=== PATIENT | male | born 1970 | race American Indian/Alaskan Native ===

== ENCOUNTER 2017-03-14 14:13 | Emergency (ER) | payer OTHER ==
[~2017-03-14] VITALS: Ht 167.6 cm; Wt 108.9 kg
[2017-03-14 15:36] VITALS: BP 124/77
== END 2017-03-14 16:22 | disposition home or self-care (01) ==
LOC: ER 15:00
DX: S09.90XA Unspecified injury of head, initial encounter (principal); W18.39XA Other fall on same level, initial encounter; Y99.0 Civilian activity done for income or pay; Y93.89 Activity, other specified; Y92.69 Other specified industrial and construction area as the place of occurrence of the external cause
CPT/HCPCS: 70450

== ENCOUNTER 2025-07-08 11:25 | Inpatient (IN) | payer OTHER ==
[~2025-07-08] VITALS: Ht 167.6 cm; Wt 127.5 kg
[2025-07-08 11:48] VITALS: PULSE 52; RESP 17; O2SAT 96
--- NOTE | 2025-07-08 12:01 | ECG ---
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
[2025-07-08] MEDS: SODIUM CHLORIDE 0.9% 2,000 ML IV ONE (12:06)
[2025-07-08] MEDS: ONDANSETRON HCL 4 MG/2 ML VIAL IV ONE (12:10)
--- NOTE | 2025-07-08 12:11 | ED.PDOC ---
SOB-HPI HPI Comments 54y M with a history of restless leg syndrome presents to the ED via EMS for chief complaint of inhalation of an unknown substance, associated with dizziness, nausea and vomiting. 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 Pt told staff about his symptoms and was administered Narcan. Pt states after Narcan administration he developed nausea, vomiting and felt more dizzy, so was brought to the ED for evaluation. Pt in the ED, with Long Term staff officer stating guards at residential are often exposed to fumes from many things including bug spray to synthetic drugs often being smoked by inmates. Pt in the ED, has noted heart rate of 46 and BP of 171/95 but otherwise stable vitals including 02 sat of 100% on room air, rr 18 and temp of 97.8 F. Pt otherwise denies any chest pain, difficulty breathing, abdominal pain, vision changes, focal weakness or other symptoms at this time. Pt in the ED, alert and oriented x 4 and able to answer all questions. Chief Complaint: Inhalation Time Seen by MD: 12:08 Primary Care Provider: NONE Reviewed notes: Medications, Allergies Information Source: Patient, Emergency Med Personnel Mode of Arrival: EMS Past Medical History Past Medical History (Other): restless legs syndrome Surgical History: Denies all surgeries Family History Family History: Unknown Social History Smoker: Non-Smoker Alcohol: Denies ETOH Use Drugs: Denies Drug Use Lives In: Home All Other Systems: Reviewed and Negative (see HPI) Physical Exam General Appearance: Mild Distress, Obese HEENT: Other (Pupils and face symmetric. Moist mucous membranes.) Neck: Full Range of Motion, Normal Inspection Respiratory: Lungs Clear, No Accessory Muscle Use, No Respiratory Distress, Normal Breath Sounds Cardiovascular: Bradycardia, No Edema, No JVD Breast Exam: Deferred Gastrointestinal: Non Tender, Soft Genitalia: Deferred Pelvic: Deferred Rectal: Deferred Extremities: Normal inspection, Normal range of motion, Non-tender, No pedal edema Neurologic: Alert (Oriented x4), Normal Affect, Normal Mood, Other (No gross focal deficit) Cerebellar Function: NOT DONE Reflexes: NOT DONE Skin: Dry, Normal Color, Warm Lymphatic: NOT DONE EKG EKG : Comments Sinus bradycardia, rate 48, normal intervals, normal axis, normal QRS, nonspecific T change. Was a procedure done? Was a procedure done?: No Differential Dx Differential Diagnosis: Anxiety, Panic Attack Comments toxic encephalopathy, electrolyte imbalance, dehydration, drug intoxication, opiate withdrawal due to Narcan, among others X-Ray, Labs, Meds, VS Vital Signs Date Time Temp Pulse Resp B/P (MAP) Pulse Ox O2 Delivery O2 Flow Rate FiO2 07/08/25 14:01 44 12 128/72 (90) 97 07/08/25 12:00 53 07/08/25 11:48 52 17 96 Room Air* 0 21 07/08/25 11:47 96.9 52 17 161/85 (110) 96 96.9 07/08/25 11:38 97.8 46 18 171/95 100 97.8 07/08/25 11:34 48 Lab Test 07/08/25 13:50 07/08/25 13:17 07/08/25 11:33 Range/Units Urine Color Light-yellow Yellow Urine Clarity Clear Clear Urine pH 5.5 5.0-9.0 Urine Specific [place] 1.022 1.001-1.035 Urine Protein Negative Negative Urine Ketones Negative Negative Urine Blood Negative Negative /uL Urine Nitrite Negative Negative Urine Bilirubin Negative Negative Urine Urobilinogen Normal Negative mg/dL Urine Leukocyte Esterase Negative Negative /uL Urine RBC 2 0 - 3 /hpf Urine Microscopic WBC 1 0-3 /HPF Urine Squamous Epithelial Cells None seen <5 /hpf Urine Bacteria None seen None Seen /hpf Urine Mucus Few None Seen Urine Glucose Normal Normal mg/dL Urine Opiates Screen Neg NEGATIVE Urine Fentanyl Screen Neg NEGATIVE Urine Barbiturates Screen Neg NEGATIVE Urine Phencyclidine Screen Neg NEGATIVE Urine Amphetamines Screen Neg NEGATIVE Urine Benzodiazepines Screen Neg NEGATIVE Urine Cocaine Screen Neg NEGATIVE Urine Cannabinoids Screen Neg NEGATIVE White Blood Count 10.4 4.4-10.8 10^3/uL Red Blood Count 4.62 4.5-5.90 10^6/uL Hemoglobin 14.5 13.5-17.5 g/dL Hematocrit 41.5 41.0-53.0 % Mean Corpuscular Volume 89.9 80.0-100.0 fL Mean Corpuscular Hemoglobin 31.4 28.0-32.0 pg Mean Corpuscular Hemoglobin Concent 35.0 32.0-36.0 g/dL Red Cell Distribution Width 12.9 11.8-14.3 % Platelet Count 196 140-450 10^3/uL Mean Platelet Volume 9.3 6.9-10.8 fL Neutrophils (%) (Auto) 83.2 H 37.0-80.0 % Lymphocytes (%) (Auto) 11.8 10.0-50.0 % Monocytes (%) (Auto) 3.6 0.0-12.0 % Eosinophils (%) (Auto) 1.0 0.0-7.0 % Basophils (%) (Auto) 0.4 0.0-2.0 % Neutrophils # (Auto) 8.6 1.6-8.6 10 ^3/uL Lymphocytes # (Auto) 1.2 0.4-5.4 10 ^3/uL Monocytes # (Auto) 0.4 0-1.3 10 ^3/uL Eosinophils # (Auto) 0.1 0-0.8 10 ^3/uL Basophils # (Auto) 0 0-0.2 10 ^3/uL Nucleated Red Blood Cells 0.0 % Sodium Level 142 136-145 mmol/L Potassium Level 3.8 3.5-5.1 mmol/L Chloride Level 108 H 98-107 mmol/L Carbon Dioxide Level 22 20-31 mmol/L Anion Gap 12 5-15 Blood Urea Nitrogen 11 9-23 mg/dL Creatinine 0.92 0.700-1.30 mg/dL Glomerular Filtration Rate Calc 99 >90 mL/min BUN/Creatinine Ratio 12.0 10.0-20.0 Serum Glucose 132 H 74-106 mg/dL Calcium Level 8.7 8.7-10.4 mg/dL Total Bilirubin 0.6 0.2-1.0 mg/dL Aspartate Amino Transferase (AST) 18 13-40 U/L Alanine Aminotransferase (ALT) 26 7-40 U/L Alkaline Phosphatase 82 46-116 U/L Total Protein 6.9 5.7-8.2 g/dL Albumin 4.2 3.2-4.8 g/dL POC Glucose 126 H 70-106 mg/dl Current Medications Medications (Trade) Dose Ordered Sig/[place] Route Start Time Stop Time Status Last Admin Sodium Chloride 2,000 ml @ 1,000 mls/hr Q2H ONCE IV 07/08/25 12:00 07/08/25 13:59 DC 07/08/25 12:06 Ondansetron HCl (Zofran) 4 mg ONCE ONCE IV 07/08/25 12:00 07/08/25 12:02 DC 07/08/25 12:10 Meclizine HCl (Antivert Tablet) 50 mg ONCE ONCE PO 07/08/25 12:00 07/08/25 12:02 DC 07/08/25 12:22 Metoclopramide HCl (Reglan Injection) 10 mg ONCE ONCE IV 07/08/25 13:15 07/08/25 13:16 DC 07/08/25 14:20 Lorazepam (Ativan Inj) 0.5 mg ONCE ONCE IV 07/08/25 13:15 07/08/25 13:16 DC 07/08/25 14:20 X-Ray, Labs, Meds, VS Comment 54-year-old male with a history of restless leg syndrome brought in by work supervisors for evaluation of dizziness, nausea and vomiting after her exposure to an inhaled unknown substance followed by Narcan administration Vitals remarkable for heart rate 48, BP 171/95 Exam remarkable for mild distress Rhythm strip independently interpreted by me: Sinus bradycardia, rate 48, no ectopy. CBC, CMP, UA, urine drug screen unremarkable for any abnormality of acute significance Patient treated with the following in the ED: 2 L 0.9 normal saline IV bolus, Zofran 4 mg IV, meclizine 50 mg p.o. On re-evaluation, patient states he still feels nauseated and dizzy. He subsequently received Ativan 0.5 mg IV and Reglan 10 mg IV On re-evaluation after 2nd round of medications, patient states his symptoms have not improved. He states he still feels dizzy although the nausea has subsided. He states he feels agitated, so an additional 0.5 mg Ativan IV was ordered. Heart rate is in the 50s, other vitals were stable. Since patient's symptoms have not improved after IV fluid hydration and additional medications, plan is to admit the patient for ongoing observation and symptomatic treatment. Time of 1ST Reevaluation: 13:23 Reevaluation 1ST: Unchanged Patient Education/Counseling: Diagnosis, Treatment, Prognosis Family Education/Counseling: Diagnosis, Treatment, Prognosis SEPSIS Sepsis Screen Date sepsis recognized/suspect: Jul 08, 2025 Time Sepsis recognized/suspect: 8 Recent Procedure: No On Antibiotic Therapy: No Respiratory Rate >20: No Heart Rate >90: No Temp<36 C (96.8 F) or >38.3 C: No SBP <90 or MAP <65 mmHG: No New Acute Mental Status Change: No Is the patient on CPAP, BIPAP,: No Physician Orders Lorazepam 2mg/Ml Inj (Ativan Inj) (07/08/25 15:15) Vital Signs Date Time Temp Pulse Resp B/P (MAP) Pulse Ox O2 Delivery O2 Flow Rate FiO2 07/08/25 14:01 44 12 128/72 (90) 97 07/08/25 12:00 53 07/08/25 11:48 52 17 96 Room Air* 0 21 07/08/25 11:47 96.9 52 17 161/85 (110) 96 96.9 07/08/25 11:38 97.8 46 18 171/95 100 97.8 07/08/25 11:34 48 Laboratory Tests Test 07/08/25 13:17 White Blood Count 10.4 10^3/uL (4.4-10.8) Medications Medications Dose Ordered Sig/[place] Route Start Time Stop Time Status Last Admin Dose Admin Lorazepam 0.5 mg ONCE ONCE IV 07/08/25 13:15 07/08/25 13:16 DC 07/08/25 14:20 Meclizine HCl 50 mg ONCE ONCE PO 07/08/25 12:00 07/08/25 12:02 DC 07/08/25 12:22 Metoclopramide HCl 10 mg ONCE ONCE IV 07/08/25 13:15 07/08/25 13:16 DC 07/08/25 14:20 Ondansetron HCl 4 mg ONCE ONCE IV 07/08/25 12:00 07/08/25 12:02 DC 07/08/25 12:10 Sodium Chloride 2,000 ml @ 1,000 mls/hr Q2H ONCE IV 07/08/25 12:00 07/08/25 13:59 DC 07/08/25 12:06 Departure 1 Departure Time of Disposition: 14:30 Impression: Primary Impression: Toxic encephalopathy Qualified Codes: G92.9 - Unspecified toxic encephalopathy Disposition: ADMITTED INPATIENT Admit to: Med Surg Condition: Guarded Critical Care Note Critical Care Time?: No Stability Stability form required: No Heart Score Heart Score: Heart Score Response (Comments) Value History N/A 0 EKG N/A 0 Age N/A 0 Risk Factors N/A 0 Troponin N/A 0 Total 0 I personally scribed for DIONY KONG MD ([facility]) on 07/08/25 at 12:11. Electronically submitted by Kayce Hastings ([facility]). DIONY KONG MD Jul 08, 2025 12:11
[2025-07-08] MEDS: MECLIZINE HCL 25 MG TAB PO ONE (12:22)
[2025-07-08 13:46] LABS: Hematocrit 41.5 % (41.0-53.0); Hemoglobin 14.5 g/dL (13.5-17.5); Mean Corpuscular Hemoglobin 31.4 pg (28.0-32.0); Mean Corpuscular Volume 89.9 fL (80.0-100.0); Nucleated Red Blood Cells % 0.0 %
[2025-07-08 13:59] LABS: Alanine Aminotransferase 26 U/L (7-40); Albumin 4.2 g/dL (3.2-4.8); Alkaline Phosphatase 82 U/L (46-116); Anion Gap 12 (5-15); BUN/Creatinine Ratio 12.0 (10.0-20.0); Blood Urea Nitrogen 11 mg/dL (9-23); Calcium 8.7 mg/dL (8.7-10.4); Carbon Dioxide 22 mmol/L (20-31); Potassium 3.8 mmol/L (3.5-5.1); Sodium 142 mmol/L (136-145); Total Protein 6.9 g/dL (5.7-8.2)
[2025-07-08 14:00] LABS: Bilirubin, Total 0.6 mg/dL (0.2-1.0); Chloride 108 mmol/L (98-107); Glucose 132 mg/dL (74-106)
[2025-07-08 14:13] LABS: Urine Protein, UAD Negative (Negative)
[2025-07-08 14:17] LABS: Amphetamine Screen, Urine Neg (NEGATIVE); Barbiturate Scree,Urine Neg (NEGATIVE); Benzodiazephine Screen, Urine Neg (NEGATIVE); Cannabinoid Screen, Urine Neg (NEGATIVE); Cocaine Screen, Urine Neg (NEGATIVE); Opiate Scree,Urine Neg (NEGATIVE); Phencyclidine Screen, Urine Neg (NEGATIVE)
[2025-07-08] MEDS: LORazepam 2MG/ML-1ML VIAL IV ONE ×2 (14:20→15:28)
[2025-07-08] MEDS: METOCLOPRAMIDE HCL 5MG/ml INJ 2ml VIAL IV ONE (14:20)
[2025-07-08] MEDS: SODIUM CHLORIDE 0.9% 1,000 ML IV SCH (16:45)
[2025-07-08] MEDS: PRAMIPEXOLE DIHYDROCHLORIDE MO 0.25 MG TAB PO ONE (16:45)
--- NOTE | 2025-07-08 16:46 | DVHHPRES ---
History of Present Illness Resident Creating Document: SLIM OVIEDO History of Present Illness Anderson Loving is a 54-year-old male patient who presents to the ED brought by EMS due to drowsiness, dizziness, and altered level of consciousness after being exposed by fumes at work (he works in the [employer]). Per patient and inmate released a gas, and he felt these symptoms right after that exposure. Denies any other associated symptoms. Past medical history: Morbid obesity, restless leg syndrome, umbilical hernia Surgical history: Appendectomy Family history: Grandmother has lupus Social history: Lives in [place] (next of kin). Denies current tobacco, alcohol and other drug abuse. Allergies: Denies Home medication: Ropinirole Patient seen and examined at bedside. Currently continues drowsy, he does twitch during examination, he is oriented in three spheres, but is delayed in answering questions. is at bedside. Past Medical History Per HPI Past Surgical History Per HPI Family History Per HPI Past Social History Per HR. Review of Systems Review of Systems Per HPI Allergies: Coded Allergies: NO KNOWN ALLERGIES (Unverified , 03/14/17) Medications Current Medications Medications Dose Ordered Sig/[place] Route Start Time Stop Time Status Last Admin Dose Admin Acetaminophen 325 mg Q4HP PRN PO 07/08/25 16:30 UNV Enoxaparin Sodium 40 mg DAILY SC 07/09/25 10:00 UNV Exam Vital Signs Vital Signs Date Time Temp Pulse Resp B/P (MAP) Pulse Ox O2 Delivery O2 Flow Rate FiO2 07/08/25 14:01 44 12 128/72 (90) 97 07/08/25 11:48 Room Air* 0 21 07/08/25 11:47 96.9 96.9 Exam Patient lying in bed, in no acute distress General: Somnolent, afebrile, mucosae are moist, presents generalized twitching Cardiovascular: Normal S1 and S2. No murmurs, gallops or rubs Respiratory: Normal ventilation mechanics. Clear lung sounds on auscultation Abdomen: Soft, nontender, no organomegaly, normal bowel sounds. Presents umbilical hernia, nor erythema or any signs of obstruction. MSK/skin: Mobilizes 4 limbs. Skin is dry and warm Neurological: Oriented in 3 spheres. No motor no sensitive deficits. Pupils are isocoric and reactive Labs/Xrays Labs Test 07/08/25 13:50 07/08/25 13:17 07/08/25 11:33 Range/Units Urine Color Light-yellow Yellow Urine Clarity Clear Clear Urine pH 5.5 5.0-9.0 Urine Specific [place] 1.022 1.001-1.035 Urine Protein Negative Negative Urine Ketones Negative Negative Urine Blood Negative Negative /uL Urine Nitrite Negative Negative Urine Bilirubin Negative Negative Urine Urobilinogen Normal Negative mg/dL Urine Leukocyte Esterase Negative Negative /uL Urine RBC 2 0 - 3 /hpf Urine Microscopic WBC 1 0-3 /HPF Urine Squamous Epithelial Cells None seen <5 /hpf Urine Bacteria None seen None Seen /hpf Urine Mucus Few None Seen Urine Glucose Normal Normal mg/dL Urine Opiates Screen Neg NEGATIVE Urine Fentanyl Screen Neg NEGATIVE Urine Barbiturates Screen Neg NEGATIVE Urine Phencyclidine Screen Neg NEGATIVE Urine Amphetamines Screen Neg NEGATIVE Urine Benzodiazepines Screen Neg NEGATIVE Urine Cocaine Screen Neg NEGATIVE Urine Cannabinoids Screen Neg NEGATIVE White Blood Count 10.4 4.4-10.8 10^3/uL Red Blood Count 4.62 4.5-5.90 10^6/uL Hemoglobin 14.5 13.5-17.5 g/dL Hematocrit 41.5 41.0-53.0 % Mean Corpuscular Volume 89.9 80.0-100.0 fL Mean Corpuscular Hemoglobin 31.4 28.0-32.0 pg Mean Corpuscular Hemoglobin Concent 35.0 32.0-36.0 g/dL Red Cell Distribution Width 12.9 11.8-14.3 % Platelet Count 196 140-450 10^3/uL Mean Platelet Volume 9.3 6.9-10.8 fL Neutrophils (%) (Auto) 83.2 H 37.0-80.0 % Lymphocytes (%) (Auto) 11.8 10.0-50.0 % Monocytes (%) (Auto) 3.6 0.0-12.0 % Eosinophils (%) (Auto) 1.0 0.0-7.0 % Basophils (%) (Auto) 0.4 0.0-2.0 % Neutrophils # (Auto) 8.6 1.6-8.6 10 ^3/uL Lymphocytes # (Auto) 1.2 0.4-5.4 10 ^3/uL Monocytes # (Auto) 0.4 0-1.3 10 ^3/uL Eosinophils # (Auto) 0.1 0-0.8 10 ^3/uL Basophils # (Auto) 0 0-0.2 10 ^3/uL Nucleated Red Blood Cells 0.0 % Sodium Level 142 136-145 mmol/L Potassium Level 3.8 3.5-5.1 mmol/L Chloride Level 108 H 98-107 mmol/L Carbon Dioxide Level 22 20-31 mmol/L Anion Gap 12 5-15 Blood Urea Nitrogen 11 9-23 mg/dL Creatinine 0.92 0.700-1.30 mg/dL Glomerular Filtration Rate Calc 99 >90 mL/min BUN/Creatinine Ratio 12.0 10.0-20.0 Serum Glucose 132 H 74-106 mg/dL Calcium Level 8.7 8.7-10.4 mg/dL Total Bilirubin 0.6 0.2-1.0 mg/dL Aspartate Amino Transferase (AST) 18 13-40 U/L Alanine Aminotransferase (ALT) 26 7-40 U/L Alkaline Phosphatase 82 46-116 U/L Total Protein 6.9 5.7-8.2 g/dL Albumin 4.2 3.2-4.8 g/dL POC Glucose 126 H 70-106 mg/dl SEPSIS Sepsis Screen Date sepsis recognized/suspect: Jul 08, 2025 Time Sepsis recognized/suspect: 8 Recent Procedure: No On Antibiotic Therapy: No Respiratory Rate >20: No Heart Rate >90: No Temp<36 C (96.8 F) or >38.3 C: No SBP <90 or MAP <65 mmHG: No New Acute Mental Status Change: No Is the patient on CPAP, BIPAP,: No Physician Orders Admit (07/08/25 16:23) Code Status (07/08/25 16:23) Acetaminophen Tablet (Tylenol Tablet) (07/08/25 16:30) Enoxaparin Sodium (Lovenox) (07/09/25 10:00) Complete Blood Count (07/09/25 04:00) Comprehensive Metabolic Panel (07/09/25 04:00) Npo (Nothing By Mouth) Diet (07/08/25 Dinner) Condition: Stable (07/08/25 16:23) Oxygen By Nasal Cannula (07/08/25 16:23) Stat Ekg For Chest Pain (07/08/25 16:23) Notify Of Changes From Base (07/08/25 16:23) Console Assembler For 24 Hours (07/08/25 16:23) Emergency Dysrhythmia Protocol (07/08/25 16:23) Rhythm Strips Once Every Shift (07/08/25 16:23) Vital Signs Date Time Temp Pulse Resp B/P (MAP) Pulse Ox O2 Delivery O2 Flow Rate FiO2 07/08/25 14:01 44 12 128/72 (90) 97 07/08/25 12:00 53 07/08/25 11:48 52 17 96 Room Air* 0 21 07/08/25 11:47 96.9 52 17 161/85 (110) 96 96.9 07/08/25 11:38 97.8 46 18 171/95 100 97.8 07/08/25 11:34 48 Laboratory Tests Test 07/08/25 13:17 White Blood Count 10.4 10^3/uL (4.4-10.8) Medications Medications Dose Ordered Sig/[place] Route Start Time Stop Time Status Last Admin Dose Admin Lorazepam 0.5 mg ONCE ONCE IV 07/08/25 13:15 07/08/25 13:16 DC 07/08/25 14:20 0.5 MG Lorazepam 0.5 mg ONCE ONCE IV 07/08/25 15:15 07/08/25 15:24 DC 07/08/25 15:28 0.5 MG Meclizine HCl 50 mg ONCE ONCE PO 07/08/25 12:00 07/08/25 12:02 DC 07/08/25 12:22 50 MG Metoclopramide HCl 10 mg ONCE ONCE IV 07/08/25 13:15 07/08/25 13:16 DC 07/08/25 14:20 10 MG Ondansetron HCl 4 mg ONCE ONCE IV 07/08/25 12:00 07/08/25 12:02 DC 07/08/25 12:10 4 MG Sodium Chloride 2,000 ml @ 1,000 mls/hr Q2H ONCE IV 07/08/25 12:00 07/08/25 13:59 DC 07/08/25 12:06 1,000 MLS/HR Assessment/Plan Assessment/Plan Questionable toxic encephalopathy Toxic gas exposure at work Rule out CVA Completed UDS which was negative Ordered head CT Keep patient NPO Transient sinus bradycardia Patient was admitted to telemetry EKG shows sinus bradycardia with no ST alteration Per he already has history of sinus bradycardia Ordered echocardiogram Restless leg syndrome Patient is on ropinirole, we will administer pramipexole during admission Morbid obesity Gave her advice on healthy lifestyle habits Goals of care discussed with patient for over 18 minutes: Full code status Case discussed with Dr. Cha, patient and nurses: Patient admitted to telemetry, we will monitor cardiac activity, ordered head CT. We will avoid Ativan at this time. Patient has poor prognosis Plan discussed with: Patient, Spouse, Other (Nurses) My Orders Orders - SLIM OVIEDO Procedure Category Date Status Time Admit ADMIT 07/08/25 Transmitted 16:23 Code Status CODE 07/08/25 Verified 16:23 Acetaminophen Tablet PHA 07/08/25 Logged (Tylenol Tablet) 16:30 Enoxaparin Sodium PHA 07/09/25 Logged (Lovenox) 10:00 Complete Blood Count LAB 07/09/25 Verified 04:00 Comprehensive LAB 07/09/25 Verified Metabolic Panel 04:00 Npo (Nothing By DIET 07/08/25 Transmitted Mouth) Diet Dinner Condition: Stable [facility] 07/08/25 In Process 16:23 Oxygen By Nasal RT 07/08/25 Transmitted Cannula 16:23 Stat Ekg For Chest [facility] 07/08/25 In Process Pain 16:23 Notify Md Of Changes [facility] 07/08/25 In Process From Base 16:23 Console Assembler For [facility] 07/08/25 In Process 24 Hours 16:23 Emergency Dysrhythmia [facility] 07/08/25 In Process Protocol 16:23 Rhythm Strips Once [facility] 07/08/25 In Process Every Shift 16:23 Date of Service: Jul 08, 2025 Billing Provider: VICKEY CHA MD Common Visit Codes: 27680-[id number] INP/OBS CARE (HIGH) Secondary Visit Codes: [id number] CARE PLAN 30 MINUTES SLIM OVIEDO Jul 08, 2025 16:46 VICKEY CHA MD Jul 08, 2025 21:51
[2025-07-08 17:02] LABS: Magnesium 1.8 mg/dL (1.6-2.6)
[2025-07-08 17:03] LABS: Cholesterol 191.0 mg/dL (< 200); HDL Cholesterol 44.0 mg/dL (40-59); Triglycerides 174.0 mg/dL (< 150)
[2025-07-08 17:05] LABS: INR 1.06 (0.9-1.15); Partial Thromboplastin Time 26.3 SEC (24.5-34.5); Prothrombin Time 11.2 sec (9.3-11.8)
[2025-07-08] MEDS: METOCLOPRAMIDE HCL 5MG/ml INJ 2ml VIAL ONE (17:32)
[2025-07-08] MEDS: ONDANSETRON HCL 4 MG/2 ML VIAL ONE (17:32)
[2025-07-08] MEDS: MECLIZINE HCL 25 MG TAB ONE (17:32)
[2025-07-08] MEDS: LORazepam 2MG/ML-1ML VIAL ONE ×2 (17:32)
--- NOTE | 2025-07-08 17:43 | DVH ---
CLINICAL HISTORY: Toxic encephalopathy TECHNIQUE: Helical scanning was performed of the head from the skull base to the vertex. Multiplanar reconstructions were performed. This exam was performed according to our departmental dose optimizat ion program. Up-to-date CT equipment and radiation dose reduction techniques are utilized as appropri ate. CTDI 53.5 DLP 966 COMPARISON: None FINDINGS: Evaluation is limited due to patient motion. There is no evidence for acute intracranial hemorrhage, mass, mass effect, or extra-axial fluid colle ction. There is no hydrocephalus or midline shift. There is no effacement of the cerebral sulci and b judy subarachnoid cisterns. The ingram-white matter differentiation is well maintained. There is a small area of hypoattenuation at the left globus pallidus. The imaged paranasal sinuses are clear. IMPRESSION: Limited exam with small area of hypoattenuation at the left globus pallidus,which could represent an age indeterminate infarct or prominent perivascular space. MRI can better evaluate.
[2025-07-08] MEDS: ENOXAPARIN SOD 40 MG/0.4 ML SYRINGE SC SCH (18:00)
[2025-07-08 20:40] VITALS: BP 144/69; PULSE 52; RESP 16; TEMP 98; O2SAT 93
[2025-07-08] MEDS ORDERED: ROPI5TAB17 PO (20:50)
[2025-07-08 22:00] VITALS: BP 144/69; PULSE 60; RESP 18; TEMP 98; O2SAT 96
[2025-07-08] MEDS: PRAMIPEXOLE DIHYDROCHLORIDE MO 0.25 MG TAB PO SCH (22:56)
[2025-07-09] VITALS (9 sets, daily range): BP systolic 126–146; BP diastolic 64–91; PULSE 44–89; RESP 16–20; TEMP 96.9–98.2; O2SAT 95–100
[2025-07-09 08:40] LABS: Hematocrit 40.1 % (41.0-53.0); Hemoglobin 14.1 g/dL (13.5-17.5); Mean Corpuscular Hemoglobin 31.2 pg (28.0-32.0); Mean Corpuscular Volume 89.0 fL (80.0-100.0); Nucleated Red Blood Cells % 0.0 %
[2025-07-09 08:58] LABS: Alanine Aminotransferase 26 U/L (7-40); Alkaline Phosphatase 73 U/L (46-116); Anion Gap 11 (5-15); BUN/Creatinine Ratio 7.7 (10.0-20.0); Calcium 9.1 mg/dL (8.7-10.4); Carbon Dioxide 25 mmol/L (20-31); Potassium 3.9 mmol/L (3.5-5.1); Sodium 144 mmol/L (136-145); Total Protein 7.1 g/dL (5.7-8.2)
[2025-07-09 08:59] LABS: Albumin 4.4 g/dL (3.2-4.8); Bilirubin, Total 0.7 mg/dL (0.2-1.0); Blood Urea Nitrogen 7 mg/dL (9-23); Chloride 108 mmol/L (98-107); Glucose 122 mg/dL (74-106)
--- NOTE | 2025-07-09 10:51 | DVHPNRES ---
Progress Note Date Seen: Jul 09, 2025 Resident Creating Document: PATY ROBERSON RESIDENT Medical Necessity Reason Pt with a Central, PICC or Fol: No Subjective Review of Systems Anderson Loving is a 54-year-old male patient who presents to the ED brought by EMS due to drowsiness, dizziness, and altered level of consciousness after being exposed by fumes at work (he works in the [employer]). Per patient and inmate released a gas, and he felt these symptoms right after that exposure. Denies any other associated symptoms. Past medical history: Morbid obesity, restless leg syndrome, umbilical hernia Surgical history: Appendectomy Family history: Grandmother has lupus Social history: Lives in [place] with (next of kin). Denies current tobacco, alcohol and other drug abuse. Allergies: Denies Home medication: Ropinirole Patient lying in bed, in no acute distress. However, the patient reports feeling drowsy and little bit of dizziness. Patient presents bradycardia at rest, he does have appropriate chronotropic response while walking (heart rate does increase). Cardiology was consulted to rule out ischemia, planning on completing stress test Objective vital signs Vital Sign Date Time Temp Pulse Resp B/P (MAP) Pulse Ox O2 Delivery O2 Flow Rate FiO2 07/09/25 08:02 97.7 46 18 131/64 (86) 100 97.7 07/09/25 08:00 Room Air* 0 21 Total Intake and Output 07/08/25 07/08/25 07/09/25 15:00 23:00 07:00 Intake Total 2000 ml 125 ml 0 ml Balance 2000 ml 125 ml 0 ml medications Current Medications Medications Dose Ordered Sig/[place] Route Start Time Stop Time Status Last Admin Dose Admin Acetaminophen 325 mg Q4HP PRN PO 07/08/25 16:30 Enoxaparin Sodium 40 mg BIDD SC 07/08/25 18:00 07/09/25 06:41 40 MG Pramipexole Dihydrochloride 0.125 mg Q8HR PO 07/08/25 22:00 07/09/25 06:37 0.125 MG Sodium Chloride 1,000 ml @ 125 mls/hr Q8H IV 07/08/25 16:45 07/08/25 22:58 125 MLS/HR Ergocalciferol 50,000 unit Q7D PO 07/09/25 10:00 UNV Examination Patient lying in bed, in no acute distress General: Somnolent, afebrile, mucosae are moist, presents generalized twitching Cardiovascular: Normal S1 and S2. No murmurs, gallops or rubs Respiratory: Normal ventilation mechanics. Clear lung sounds on auscultation Abdomen: Soft, nontender, no organomegaly, normal bowel sounds. Presents umbilical hernia, nor erythema or any signs of obstruction. MSK/skin: Mobilizes 4 limbs. Skin is dry and warm Neurological: Oriented in 3 spheres. No motor no sensitive deficits. Pupils are isocoric and reactive laboratory and microbiology Laboratory Tests 07/09/25 07:12 Test 07/09/25 07:12 Range/Units Serum Glucose 122 H 74-106 mg/dL Labs and/or images reviewed: Labs reviewed by me, Image(s) reviewed by me Problem List/Assessment/Plan Problem List/Assessment/Plan Toxic encephalopathy Toxic gas exposure at work Ruled out CVA Transient sinus bradycardia Completed UDS which was negative Head CT :Limited exam with small area of hypoattenuation at the left globus pallidus,which could represent an age indeterminate infarct or prominent perivascular space. MRI can better evaluate Patient was admitted to telemetry EKG shows sinus bradycardia with no ST alteration The patient and the reports baseline bradycardia most probably due to athlete's heart. Echocardiogram: LVEF 55%, borderline LVH, RV borderline enlarged, left atrium mild enlargement Cardiology consultation done, to evaluate extreme bradycardia, cardiac stress test scheduled on 07/10/2025 Restless leg syndrome Patient is on ropinirole, pramipexole administered during admission Morbid obesity Advised on healthy lifestyle habits Goals of care discussed with patient for over 18 minutes: Full code status Case discussed with Dr. Hernadez, patient and nurses. Plan discussed with: Patient, Spouse, Other (Nurses) Plan discussed with: Patient, Other (RN) My Orders My Orders Orders - PATY ROBERSON RESIDENT Procedure Category Date Status Time Ergocalciferol PHA 07/09/25 Logged (Vitamin D 50,000 10:00 PATY ROBERSON RESIDENT Jul 09, 2025 10:51 SLIM OVIEDO RESIDENT Jul 11, 2025 08:24
[2025-07-09] MEDS: ACETAMINOPHEN 325 MG TAB PO PRN (16:51)
[2025-07-09] MEDS: PRAMIPEXOLE DIHYDROCHLORIDE MO 0.25 MG TAB PO SCH (18:44)
--- NOTE | 2025-07-09 19:18 | DVHINCON2 ---
Date Seen: Jul 09, 2025 Referring Physician MD Jesica Reason for Consultation Evaluate possible stress test History of Present Illness This is a 54-year-old man who presented to the emergency room via EMS with a chief complaint of dizziness. 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 Thereafter he experienced some dizziness associated with nausea for which he was administered intranasal Narcan without relief of symptoms. Denies chest pain, palpitations, diaphoresis, shortness of breath, or syncopal events. He underwent a 12 lead e lectrocardiogram revealing sinus bradycardia rhythm at 48 bpm showed evidence of atrioventricular blocks or sinus pauses. Per patient, he has had asymptomatic bradycardia for many years. Systolic blood pressure upon arrival was found in the 170s mmHg. Significant medical history includes dyslipidemia, restless leg syndrome, obstructive sleep apnea, umbilical hernia, and morbid obesity. Past Medical History Past medical history reviewed. No other significant than mentioned above. Past Surgical History Appendectomy Family History: Diabetes mellitus G8 FATHER FH: emphysema G8 MOTHER Family History Family history reviewed. Denies for cardiovascular disease. Social History Admits to occasional alcohol use. Admits to seldom cigarette use. Denies the use of illicit drugs. Allergies: Coded Allergies: NO KNOWN ALLERGIES (Unverified , 03/14/17) Home Meds Reported Medications Ropinirole Hydrochloride (Ropinirole Hcl) 5 Mg Tab, 5 MG PO, TAB 07/08/25 Current Medications Current Medications Medications (Trade) Dose Ordered Sig/Savanna Route PRN Reason Start Time Stop Time Status Last Admin Pramipexole Dihydrochloride (Mirapex Tablet) 0.125 mg Q8HR PO 07/08/25 22:00 07/09/25 13:17 DC 07/09/25 06:37 Ergocalciferol (Vitamin D 50,000 Unit) 50,000 unit Q7D PO 07/13/25 10:00 Pramipexole Dihydrochloride (Mirapex Tablet) 0.125 mg DAILY PO 07/09/25 19:00 07/09/25 18:44 Review of Systems Constitutional: No symptom reported Ears, Nose, & Throat: No symptom reported Eyes: No symptom reported Neurological: Dizziness Pulmonary/Respiratory: No symptom reported Cardiovascular: No symptom reported Gastrointestinal: Nausea Genitourinary: No symptom reported Musculoskeletal: No symptom reported Skin: No symptom reported Psychiatric: No symptom reported Endocrine: No symptom reported Hemotologic/Lymphatic: No symptom reported Vital Signs Vital Signs Date Time Temp Pulse Resp B/P (MAP) Pulse Ox O2 Delivery O2 Flow Rate FiO2 07/09/25 17:00 98.2 46 20 126/70 (88) 95 98.2 07/09/25 08:00 Room Air* 0 21 Physical Exam General Appearance: Cooperative. Well developed. Obese. In no acute distress Head Exam: Normal inspection Neck Exam: Normal inspection. Non-tender. Normal alignment Pulmonary/Respiratory: Chest non-tender. Clear bilateral breath sounds Cardiovascular/Chest: Regular rate and rhythm. S1, S2. Sinus rhythm. No murmurs. No JVD. Peripheral Pulses: 2+ Radial (R). 2+ Radial (L). 2+ Pedal (R). 2+ Pedal (L) Abdominal Exam: Normal bowel sounds. Soft. Ankle Exam: Negative ankle edema Lower extremities: Negative lower extremity edema Neuro/Mental Status: A&O x4. Coherent Thoughts/Psych: Normal thought pattern. Appropriate mood and affect. Good judgement and insight Appearance: In no acute distress Skin Exam: Normal inspection. Normal color. Warm. Dry Labs/Diagnostic Data Labs Test 07/09/25 07:12 07/08/25 19:31 07/08/25 17:46 07/08/25 13:50 Range/Units White Blood Count 8.0 4.4-10.8 10^3/uL Red Blood Count 4.50 4.5-5.90 10^6/uL Hemoglobin 14.1 13.5-17.5 g/dL Hematocrit 40.1 L 41.0-53.0 % Mean Corpuscular Volume 89.0 80.0-100.0 fL Mean Corpuscular Hemoglobin 31.2 28.0-32.0 pg Mean Corpuscular Hemoglobin Concent 35.1 32.0-36.0 g/dL Red Cell Distribution Width 13.0 11.8-14.3 % Platelet Count 196 140-450 10^3/uL Mean Platelet Volume 9.1 6.9-10.8 fL Neutrophils (%) (Auto) 68.9 37.0-80.0 % Lymphocytes (%) (Auto) 21.6 10.0-50.0 % Monocytes (%) (Auto) 6.4 0.0-12.0 % Eosinophils (%) (Auto) 2.6 0.0-7.0 % Basophils (%) (Auto) 0.5 0.0-2.0 % Neutrophils # (Auto) 5.5 1.6-8.6 10 ^3/uL Lymphocytes # (Auto) 1.7 0.4-5.4 10 ^3/uL Monocytes # (Auto) 0.5 0-1.3 10 ^3/uL Eosinophils # (Auto) 0.2 0-0.8 10 ^3/uL Basophils # (Auto) 0 0-0.2 10 ^3/uL Nucleated Red Blood Cells 0.0 % Sodium Level 144 136-145 mmol/L Potassium Level 3.9 3.5-5.1 mmol/L Chloride Level 108 H 98-107 mmol/L Carbon Dioxide Level 25 20-31 mmol/L Anion Gap 11 5-15 Blood Urea Nitrogen 7 L 9-23 mg/dL Creatinine 0.91 0.700-1.30 mg/dL Glomerular Filtration Rate Calc 101 >90 mL/min BUN/Creatinine Ratio 7.7 L 10.0-20.0 Serum Glucose 122 H 74-106 mg/dL Calcium Level 9.1 8.7-10.4 mg/dL Total Bilirubin 0.7 0.2-1.0 mg/dL Aspartate Amino Transferase (AST) 20 13-40 U/L Alanine Aminotransferase (ALT) 26 7-40 U/L Alkaline Phosphatase 73 46-116 U/L Total Protein 7.1 5.7-8.2 g/dL Albumin 4.4 3.2-4.8 g/dL Plasma/Serum Blood Alcohol < 3.0 <10 mg/dL Lactic Acid Level 1.6 0.4-2.0 mmol/L Ammonia < 10 L 11-32 umol/L Urine Color Light-yellow Yellow Urine Clarity Clear Clear Urine pH 5.5 5.0-9.0 Urine Specific [place] 1.022 1.001-1.035 Urine Protein Negative Negative Urine Ketones Negative Negative Urine Blood Negative Negative /uL Urine Nitrite Negative Negative Urine Bilirubin Negative Negative Urine Urobilinogen Normal Negative mg/dL Urine Leukocyte Esterase Negative Negative /uL Urine RBC 2 0 - 3 /hpf Urine Microscopic WBC 1 0-3 /HPF Urine Squamous Epithelial Cells None seen <5 /hpf Urine Bacteria None seen None Seen /hpf Urine Mucus Few None Seen Urine Glucose Normal Normal mg/dL Urine Opiates Screen Neg NEGATIVE Urine Fentanyl Screen Neg NEGATIVE Urine Barbiturates Screen Neg NEGATIVE Urine Phencyclidine Screen Neg NEGATIVE Urine Amphetamines Screen Neg NEGATIVE Urine Benzodiazepines Screen Neg NEGATIVE Urine Cocaine Screen Neg NEGATIVE Urine Cannabinoids Screen Neg NEGATIVE Test 07/08/25 13:17 07/08/25 11:33 Range/Units Prothrombin Time 11.2 9.3-11.8 sec Prothrombin Time INR 1.06 0.9-1.15 Activated Partial Thromboplast Time 26.3 24.5-34.5 SEC Hemoglobin A1c 6.2 H <5.7 % A1C Phosphorus Level 2.9 2.4-5.1 mg/dL Magnesium Level 1.8 1.6-2.6 mg/dL Triglycerides Level 174 H < 150 mg/dL Cholesterol Level 191 < 200 mg/dL LDL Cholesterol 133 H < 100 mg/dL HDL Cholesterol 44 40-59 mg/dL Vitamin B12 Level 257 211-911 pg/mL Vitamin D 25-Hydroxy 18.9 L 30.0-100 ng/mL Thyroid Stimulating Hormone (TSH) 0.74 0.55-4.78 uIU/mL POC Glucose 126 H 70-106 mg/dl Assessment Dizziness secondary to unknown inhaled exposure agent Asymptomatic sinus bradycardia Hypertensive urgency, resolved Rule out structural heart disease Diabetes, newly diagnosed Dyslipidemia Morbid obesity Plan/Recommendation (Dr. Blood) We will continue further cardiac evaluation with a transthoracic echocardiogram to evaluate cardiac function. Discussion held with primary care team who would like to proceed with ischemic workup. Scheduled for a stress test to rule out coronary ischemia. Initiate lipid lowering agent as well as blood pressure control. Avoid AV harriet blocking agents given sinus bradycardia which is asymptomatic and known to patient. Further orders per clinical course. Thank you for allowing us to participate in this patient's care. Please call if you have any questions or concerns. This medical document was created using an electronic medical record system with voice recognition software and computerized dictation system. Although this document has been carefully reviewed, there might still be some phonetic and typographical errors. Occasional wrong-word or ``sound-alike substitutions may have occurred due to the inherent limitations of voice recognition software. These areas are purely typographical due to imperfections of the software programs and do not reflect any compromise in the patient's medical care. Please read the chart carefully and recognize, using context, where these substitutions have occurred. Plan discussed with: Patient, Other NYHA Physical activity limitations: NA Date of Service: Jul 09, 2025 Billing Provider: Darling Brambila Cardiology Common Codes: 54107-EQATOQO INP/OBS CARE (High) DARLING BRAMBILA [facility] Jul 09, 2025 19:18
[2025-07-09] MEDS: ATORVASTATIN 20 MG TAB PO SCH (22:56)
[2025-07-10] VITALS (8 sets, daily range): BP systolic 123–158; BP diastolic 65–94; PULSE 43–89; RESP 16–18; TEMP 96.8–98.4; O2SAT 92–98
--- NOTE | 2025-07-10 07:27 | DVHSR ---
APPROVED REPORT EXAM: Two-dimensional and M-mode echocardiogram with Doppler and color Doppler. Blood Pressure: 128/72 mmHg INDICATION Sinus bradycardia Encephalopathy RISK FACTORS Obesity: Height: 5'6", Weight: 265 DIMENSIONS LVDd5.1 (3.8-5.7cm)LA (2D)4.3 (1.9-4.0cm)Aortic Root3.7 (2.0-3.7cm) LVDs3.6 (2.5-4.0cm)LA (MM) (1.9-4.0cm)Aortic Cusp Exc1.8 (1.5-2.0cm) EF (%) 55.0 (55-70%)Rt. Atrium4.1 (1.9-4.0cm)Asc. Aorta cm IVSd1.0 (0.7-1.1cm)RV (D) (1.8-2.4cm) PWd1.1 (0.7-1.1cm) Mitral Valve MitralMitral Stenosis E wave1.12m/sMV Mean GR.mmHg A wave0.89m/sMV Peak GR.mmHg E/A ratio1.32D MVAcm2 DECEL [id number] 1/2 Timems Aortic Valve Aortic ValveAortic Stenosis V11.18m/Valentin Mean GR.4mmHg V21.56m/Valentin Peak GR.10mmHg LVOT Diameter1.9 (1.8-2.4cm)Doppler AVA2.14cm2 Other Information Quality : LimitedRhythm : Technically limited study due to body habitus, patient sitting up and moving throughout study. Conclusion lvef 55% borderline lvh RV borderline enlarged left atrium enlarged mild no severe valve abnormality noted
[2025-07-10 07:51] LABS: Anion Gap 12 (5-15); Carbon Dioxide 24 mmol/L (20-31); Chloride 105 mmol/L (98-107); Potassium 4.0 mmol/L (3.5-5.1); Sodium 141 mmol/L (136-145)
[2025-07-10 07:52] LABS: Calcium 9.2 mg/dL (8.7-10.4)
[2025-07-10 07:57] LABS: BUN/Creatinine Ratio 9.6 (10.0-20.0); Blood Urea Nitrogen 10 mg/dL (9-23)
[2025-07-10 07:58] LABS: Hematocrit 41.4 % (41.0-53.0); Hemoglobin 14.5 g/dL (13.5-17.5); Mean Corpuscular Hemoglobin 31.2 pg (28.0-32.0); Mean Corpuscular Volume 88.9 fL (80.0-100.0); Nucleated Red Blood Cells % 0.1 %
[2025-07-10 07:59] LABS: Glucose 125 mg/dL (74-106)
[2025-07-10] MEDS: CHLORTHALIDONE 25 MG TAB PO SCH (11:12)
--- NOTE | 2025-07-10 11:48 | DVHCARD ---
Cardiology Stress Test Works[place] Treadmill Stress Test [place] Referring MD: DANNIE Belcher Protocol: Milind (with cardiolite) Reason for referral: Other (Dizziness, r/o coronary ischemia ) Target heart Rate:@85%: 141 Percent MPHR: 167 METS: 10.4 Resting Heart rate: 46 Resting Blood Pressure: 144/81 Exercise Heart Rate: 179 Exercise Blood Pressure: 233/101 Baseline EKG: Sinus bradycardia Stress EKG: Sinus tachycardia (with artifact) Functional Capacity: Good Normal Heart Rate Response: Adequate Blood Pressure Response: Hypertensive Clinical response: Non-ischemic Arrhythmia?: No (Artifact throughout test) Cardiolite Injected?: Yes ST-T Changes: Non/Minimal Probability of Inducible Ische: Perfusion result pending Date of Service: Jul 10, 2025 Billing Provider: PETR BELCHER Cardiology Common Codes: PROCEDURE ONLY Treadmill W/Cardiolite Nuclear: [id number], INTERP, RPT PETR BELCHER Jul 10, 2025 11:48
--- NOTE | 2025-07-10 19:29 | DVHINCON2 ---
Date Seen: Jul 09, 2025 Referring Physician MD Jesica Reason for Consultation Evaluate possible stress test History of Present Illness This is a 54-year-old male with a PMH of dyslipidemia, restless leg syndrome, obstructive sleep apnea, umbilical hernia, and morbid obesity.who was brought in by EMS with complaint of dizziness. 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 Thereafter he experienced some dizziness associated with nausea for which he was administered intranasal Narcan without relief of symptoms. Denies chest pain, palpitations, diaphoresis, shortness of breath, or syncopal events. He underwent a 12 lead electrocardiogram revealing sinus bradycardia rhythm at 48 bpm showed evidence of atrioventricular blocks or sinus pauses. Per patient, he has had asymptomatic bradycardia for many years. Systolic blood pressure upon arrival was found in the 170s mmHg. Patient was admitted to the hospital. I am asked to consult on this patient. Past Medical History Past medical history reviewed. No other significant than mentioned above. Past Surgical History Appendectomy Family History: Diabetes mellitus G8 FATHER FH: emphysema G8 MOTHER Allergies: Coded Allergies: NO KNOWN ALLERGIES (Unverified , 03/14/17) Home Meds Reported Medications Ropinirole Hydrochloride (Ropinirole Hcl) 5 Mg Tab, 5 MG PO, TAB 07/08/25 Current Medications Current Medications Medications (Trade) Dose Ordered Sig/Savanna Route PRN Reason Start Time Stop Time Status Last Admin Ergocalciferol (Vitamin D 50,000 Unit) 50,000 unit Q7D PO 07/13/25 10:00 Atorvastatin Calcium (Lipitor) 40 mg HS PO 07/09/25 22:00 07/09/25 22:56 Chlorthalidone (Chlorthalidone) 25 mg DAILY@BREAKFAST PO 07/10/25 08:00 07/10/25 11:12 Review of Systems Constitutional: No symptom reported Ears, Nose, & Throat: No symptom reported Eyes: No symptom reported Neurological: Dizziness Pulmonary/Respiratory: No symptom reported Cardiovascular: No symptom reported Gastrointestinal: Nausea Genitourinary: No symptom reported Musculoskeletal: No symptom reported Skin: No symptom reported Psychiatric: No symptom reported Endocrine: No symptom reported Hemotologic/Lymphatic: No symptom reported Vital Signs Vital Signs Date Time Temp Pulse Resp B/P (MAP) Pulse Ox O2 Delivery O2 Flow Rate FiO2 07/10/25 17:00 98.0 45 18 152/94 (113) 97 98.0 07/10/25 08:00 Room Air* 0 21 Physical Exam GENERAL: Alert and oriented x 3. No acute distress. Obese. EYES: PERRL, EOMI. Anicteric. HENT: Moist mucous membranes. LUNGS: Clear to auscultation bilaterally. CARDIOVASCULAR: Regular rate and rhythm. ABDOMEN: Soft, non-tender and non-distended. EXTREMITIES: No edema. NEUROLOGIC: No focal neurological deficits. SKIN: Warm, dry. Labs/Diagnostic Data Labs Test 07/10/25 06:06 07/09/25 07:12 07/08/25 19:31 07/08/25 17:46 Range/Units White Blood Count 6.3 4.4-10.8 10^3/uL Red Blood Count 4.66 4.5-5.90 10^6/uL Hemoglobin 14.5 13.5-17.5 g/dL Hematocrit 41.4 41.0-53.0 % Mean Corpuscular Volume 88.9 80.0-100.0 fL Mean Corpuscular Hemoglobin 31.2 28.0-32.0 pg Mean Corpuscular Hemoglobin Concent 35.1 32.0-36.0 g/dL Red Cell Distribution Width 12.9 11.8-14.3 % Platelet Count 202 140-450 10^3/uL Mean Platelet Volume 9.5 6.9-10.8 fL Neutrophils (%) (Auto) 64.4 37.0-80.0 % Lymphocytes (%) (Auto) 25.0 10.0-50.0 % Monocytes (%) (Auto) 6.0 0.0-12.0 % Eosinophils (%) (Auto) 4.0 0.0-7.0 % Basophils (%) (Auto) 0.6 0.0-2.0 % Neutrophils # (Auto) 4.1 1.6-8.6 10 ^3/uL Lymphocytes # (Auto) 1.6 0.4-5.4 10 ^3/uL Monocytes # (Auto) 0.4 0-1.3 10 ^3/uL Eosinophils # (Auto) 0.3 0-0.8 10 ^3/uL Basophils # (Auto) 0 0-0.2 10 ^3/uL Nucleated Red Blood Cells 0.1 % Sodium Level 141 136-145 mmol/L Potassium Level 4.0 3.5-5.1 mmol/L Chloride Level 105 98-107 mmol/L Carbon Dioxide Level 24 20-31 mmol/L Anion Gap 12 5-15 Blood Urea Nitrogen 10 9-23 mg/dL Creatinine 1.04 0.700-1.30 mg/dL Glomerular Filtration Rate Calc 86 >90 mL/min BUN/Creatinine Ratio 9.6 L 10.0-20.0 Serum Glucose 125 H 74-106 mg/dL Calcium Level 9.2 8.7-10.4 mg/dL Total Bilirubin 0.7 0.2-1.0 mg/dL Aspartate Amino Transferase (AST) 20 13-40 U/L Alanine Aminotransferase (ALT) 26 7-40 U/L Alkaline Phosphatase 73 46-116 U/L Total Protein 7.1 5.7-8.2 g/dL Albumin 4.4 3.2-4.8 g/dL Plasma/Serum Blood Alcohol < 3.0 <10 mg/dL Lactic Acid Level 1.6 0.4-2.0 mmol/L Ammonia < 10 L 11-32 umol/L Test 07/08/25 13:50 07/08/25 13:17 07/08/25 11:33 Range/Units Urine Color Light-yellow Yellow Urine Clarity Clear Clear Urine pH 5.5 5.0-9.0 Urine Specific [place] 1.022 1.001-1.035 Urine Protein Negative Negative Urine Ketones Negative Negative Urine Blood Negative Negative /uL Urine Nitrite Negative Negative Urine Bilirubin Negative Negative Urine Urobilinogen Normal Negative mg/dL Urine Leukocyte Esterase Negative Negative /uL Urine RBC 2 0 - 3 /hpf Urine Microscopic WBC 1 0-3 /HPF Urine Squamous Epithelial Cells None seen <5 /hpf Urine Bacteria None seen None Seen /hpf Urine Mucus Few None Seen Urine Glucose Normal Normal mg/dL Urine Opiates Screen Neg NEGATIVE Urine Fentanyl Screen Neg NEGATIVE Urine Barbiturates Screen Neg NEGATIVE Urine Phencyclidine Screen Neg NEGATIVE Urine Amphetamines Screen Neg NEGATIVE Urine Benzodiazepines Screen Neg NEGATIVE Urine Cocaine Screen Neg NEGATIVE Urine Cannabinoids Screen Neg NEGATIVE Prothrombin Time 11.2 9.3-11.8 sec Prothrombin Time INR 1.06 0.9-1.15 Activated Partial Thromboplast Time 26.3 24.5-34.5 SEC Hemoglobin A1c 6.2 H <5.7 % A1C Phosphorus Level 2.9 2.4-5.1 mg/dL Magnesium Level 1.8 1.6-2.6 mg/dL Triglycerides Level 174 H < 150 mg/dL Cholesterol Level 191 < 200 mg/dL LDL Cholesterol 133 H < 100 mg/dL HDL Cholesterol 44 40-59 mg/dL Vitamin B12 Level 257 211-911 pg/mL Vitamin D 25-Hydroxy 18.9 L 30.0-100 ng/mL Thyroid Stimulating Hormone (TSH) 0.74 0.55-4.78 uIU/mL POC Glucose 126 H 70-106 mg/dl Assessment Dizziness secondary to unknown inhaled exposure agent. Asymptomatic sinus bradycardia. Hypertensive urgency, resolved. Rule out structural heart disease. Diabetes, newly diagnosed. Dyslipidemia. Morbid obesity. Plan/Recommendation I agree with your ongoing assessment and care of plan. Patient has been seen by Darling Brambila NP on my behalf. We have discussed the plan with the patient. We will continue further cardiac evaluation with a transthoracic echocardiogram to evaluate cardiac function. Discussion held with primary care team who would like to proceed with ischemic workup. Scheduled for a stress test to rule out coronary ischemia. Initiate lipid lowering agent as well as blood pressure control. Avoid AV harriet blocking agents given sinus bradycardia which is asymptomatic and known to patient. Additional plan as per the hospital course. Plan discussed with: Patient NYHA Physical activity limitations: NA Date of Service: Jul 09, 2025 Billing Provider: LEDA MENDEZ MD Cardiology Common Codes: 12348-PINIFDS INP/OBS CARE (High) Cardiology Consultation Codes: [id number] CONSULT <45MIN LEDA MENDEZ MD Jul 10, 2025 19:29
--- NOTE | 2025-07-10 19:43 | DVHPNRES ---
Progress Note Date Seen: Jul 10, 2025 Resident Creating Document: PATY ROBERSON Medical Necessity Reason Pt with a Central, PICC or Fol: No Subjective Review of Systems Anderson Loving is a 54-year-old male patient who presents to the ED brought by EMS due to drowsiness, dizziness, and altered level of consciousness after being exposed by fumes at work (he works in the [employer]). Per patient and inmate released a gas, and he felt these symptoms right after that exposure. Denies any other associated symptoms. Past medical history: Morbid obesity, restless leg syndrome, umbilical hernia Surgical history: Appendectomy Family history: Grandmother has lupus Social history: Lives in [place] with (next of kin). Denies current tobacco, alcohol and other drug abuse. Allergies: Denies Home medication: Ropinirole Patient was seen and examined at bedside. Overnight events were reviewed. The patient reports improvement in his symptoms. He denies any chest pain, shortness of breath, fever or any other complaints today. Objective vital signs Vital Sign Date Time Temp Pulse Resp B/P (MAP) Pulse Ox O2 Delivery O2 Flow Rate FiO2 07/10/25 17:00 98.0 45 18 152/94 (113) 97 98.0 07/10/25 08:00 Room Air* 0 21 Total Intake and Output 07/09/25 07/09/25 07/10/25 15:00 23:00 07:00 Intake Total 640 ml 1000 ml Balance 640 ml 1000 ml medications Current Medications Medications Dose Ordered Sig/[place] Route Start Time Stop Time Status Last Admin Dose Admin Acetaminophen 325 mg Q4HP PRN PO 07/08/25 16:30 07/09/25 16:51 325 MG Enoxaparin Sodium 40 mg BIDD SC 07/08/25 18:00 07/10/25 18:11 40 MG Sodium Chloride 1,000 ml @ 125 mls/hr Q8H IV 07/08/25 16:45 07/09/25 16:45 125 MLS/HR Ergocalciferol 50,000 unit Q7D PO 07/13/25 10:00 Pramipexole Dihydrochloride 0.125 mg DAILY PO 07/09/25 19:00 07/10/25 11:13 0.125 MG Atorvastatin Calcium 40 mg HS PO 07/09/25 22:00 07/09/25 22:56 40 MG Chlorthalidone 25 mg DAILY@BREAKFAST PO 07/10/25 08:00 07/10/25 11:12 25 MG Examination Patient lying in bed, in no acute distress General: Somnolent, afebrile, mucosae are moist, presents generalized twitching Cardiovascular: Normal S1 and S2. No murmurs, gallops or rubs Respiratory: Normal ventilation mechanics. Clear lung sounds on auscultation Abdomen: Soft, nontender, no organomegaly, normal bowel sounds. Presents umbilical hernia, nor erythema or any signs of obstruction. MSK/skin: Mobilizes 4 limbs. Skin is dry and warm Neurological: Oriented in 3 spheres. No motor no sensitive deficits. 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 MRI can better evaluate Patient was admitted to telemetry EKG shows sinus bradycardia with no ST alteration The patient and the reports baseline bradycardia most probably due to athlete's heart. Echocardiogram: LVEF 55%, borderline LVH, RV borderline enlarged, left atrium mild enlargement Cardiology on board: Ordered stress test completed on 07/10/2025, pending final report. Restless leg syndrome Patient is on ropinirole, pramipexole administered during admission Morbid obesity Advised on healthy lifestyle habits Goals of care discussed with patient for over 18 minutes: Full code status Case discussed with Dr. Hernadez, patient and nurses. Plan discussed with: Patient, Spouse, Other (RN) PATY ROBERSON RESIDENT Jul 10, 2025 19:43 SLIM OVIEDO RESIDENT Jul 11, 2025 08:25
--- NOTE | 2025-07-10 23:43 | DVHPN2 ---
Progress Note - Dictate Date Seen: Jul 10, 2025 Medical Necessity Reason Pt with a Central, PICC or Fol: No Subjective Patient was seen and evaluated in follow up. Patient is complaining of dizziness. The patient reports improvement in his symptoms. Echocardiogram showed an EF of 55%. Cardiac stress test is pending. BS are WNL. Telemetry reviewed. vital signs Vital Sign Date Time Temp Pulse Resp B/P (MAP) Pulse Ox O2 Delivery O2 Flow Rate FiO2 07/10/25 17:00 98.0 45 18 152/94 (113) 97 98.0 07/10/25 08:00 Room Air* 0 21 Total Intake and Output 07/09/25 07/09/25 07/10/25 15:00 23:00 07:00 Intake Total 640 ml 1000 ml Balance 640 ml 1000 ml medications Current Medications Medications Dose Ordered Sig/[place] Route Start Time Stop Time Status Last Admin Dose Admin Acetaminophen 325 mg Q4HP PRN PO 07/08/25 16:30 07/09/25 16:51 325 MG Enoxaparin Sodium 40 mg BIDD SC 07/08/25 18:00 07/10/25 18:11 40 MG Sodium Chloride 1,000 ml @ 125 mls/hr Q8H IV 07/08/25 16:45 07/09/25 16:45 125 MLS/HR Ergocalciferol 50,000 unit Q7D PO 07/13/25 10:00 Pramipexole Dihydrochloride 0.125 mg DAILY PO 07/09/25 19:00 07/10/25 11:13 0.125 MG Atorvastatin Calcium 40 mg HS PO 07/09/25 22:00 07/09/25 22:56 40 MG Chlorthalidone 25 mg DAILY@BREAKFAST PO 07/10/25 08:00 07/10/25 11:12 25 MG objective GENERAL: Alert and oriented x 3. No acute distress. Obese. EYES: PERRL, EOMI. Anicteric. HENT: Moist mucous membranes. LUNGS: Clear to auscultation bilaterally. CARDIOVASCULAR: Regular rate and rhythm. ABDOMEN: Soft, non-tender and non-distended. EXTREMITIES: No edema. NEUROLOGIC: No focal neurological deficits. SKIN: Warm, dry. laboratory and microbiology Laboratory Tests 07/10/25 06:06 Test 07/10/25 06:06 Range/Units Serum Glucose 125 H 74-106 mg/dL Problem List Dizziness secondary to unknown inhaled exposure agent. Asymptomatic sinus bradycardia. Hypertensive urgency, resolved. Rule out structural heart disease. Diabetes, newly diagnosed. Dyslipidemia. Morbid obesity. Assessment/Plan Continued all current supportive medical care. Tylenol for pain management. Lipitor. DVT prophylactics. Additional plan as per the hospital course Plan discussed with: Patient LEDA MENDEZ MD Jul 10, 2025 20:11
[2025-07-11 01:00] VITALS: BP 138/75; PULSE 42; RESP 18; TEMP 98; O2SAT 94
[2025-07-11 05:00] VITALS: BP 133/78; PULSE 57; RESP 18; TEMP 97.5; O2SAT 96
[2025-07-11 06:30] LABS: Chloride 103 mmol/L (98-107); Potassium 4.2 mmol/L (3.5-5.1); Sodium 141 mmol/L (136-145)
[2025-07-11 06:31] LABS: Anion Gap 10 (5-15); Carbon Dioxide 28 mmol/L (20-31)
[2025-07-11 06:32] LABS: Calcium 9.4 mg/dL (8.7-10.4)
[2025-07-11 06:37] LABS: BUN/Creatinine Ratio 9.7 (10.0-20.0); Blood Urea Nitrogen 11 mg/dL (9-23); Glucose 128 mg/dL (74-106)
[2025-07-11 06:46] LABS: Hematocrit 41.1 % (41.0-53.0); Hemoglobin 14.3 g/dL (13.5-17.5); Mean Corpuscular Hemoglobin 30.7 pg (28.0-32.0); Mean Corpuscular Volume 88.2 fL (80.0-100.0); Nucleated Red Blood Cells % 0.0 %
[2025-07-11 08:00] VITALS: PULSE 36
[2025-07-11 09:00] VITALS: BP 143/81; PULSE 46; RESP 16; TEMP 97.3; O2SAT 95
[2025-07-11 13:00] VITALS: BP 129/80; PULSE 44; RESP 17; TEMP 97.7; O2SAT 98
[2025-07-11] MEDS ORDERED: CHLO25TA2 PO (14:09)
[2025-07-11] MEDS ORDERED: ATOR-507 PO (14:09)
[2025-07-11] MEDS ORDERED: ERGO1CAP23 PO (15:07)
[2025-07-11 17:17] VITALS: BP 129/80; PULSE 44; RESP 17; TEMP 97.7; O2SAT 98
--- NOTE | 2025-07-11 17:36 | DVHDSRES ---
Discharge Summary Date of Admission Resident Creating Document: PATY ROBERSON Jul 08, 2025 at 16:23 Date of Discharge: Jul 11, 2025 Admitting Diagnosis Fume intoxication Labs/Diagnostic Data: Laboratory Results Test 07/11/25 05:53 07/09/25 07:12 07/08/25 19:31 07/08/25 17:46 White Blood Count 7.4 10^3/uL (4.4-10.8) Red Blood Count 4.66 10^6/uL (4.5-5.90) Hemoglobin 14.3 g/dL (13.5-17.5) Hematocrit 41.1 % (41.0-53.0) Mean Corpuscular Volume 88.2 fL (80.0-100.0) Mean Corpuscular Hemoglobin 30.7 pg (28.0-32.0) Mean Corpuscular Hemoglobin Concent 34.8 g/dL (32.0-36.0) Red Cell Distribution Width 12.7 % (11.8-14.3) Platelet Count 205 10^3/uL (140-450) Mean Platelet Volume 9.2 fL (6.9-10.8) Neutrophils (%) (Auto) 57.9 % (37.0-80.0) Lymphocytes (%) (Auto) 30.1 % (10.0-50.0) Monocytes (%) (Auto) 7.1 % (0.0-12.0) Eosinophils (%) (Auto) 4.2 % (0.0-7.0) Basophils (%) (Auto) 0.7 % (0.0-2.0) Neutrophils # (Auto) 4.3 10 ^3/uL (1.6-8.6) Lymphocytes # (Auto) 2.2 10 ^3/uL (0.4-5.4) Monocytes # (Auto) 0.5 10 ^3/uL (0-1.3) Eosinophils # (Auto) 0.3 10 ^3/uL (0-0.8) Basophils # (Auto) 0.1 10 ^3/uL (0-0.2) Nucleated Red Blood Cells 0.0 % Sodium Level 141 mmol/L (136-145) Potassium Level 4.2 mmol/L (3.5-5.1) Chloride Level 103 mmol/L (98-107) Carbon Dioxide Level 28 mmol/L (20-31) Anion Gap 10 (5-15) Blood Urea Nitrogen 11 mg/dL (9-23) Creatinine 1.13 mg/dL (0.700-1.30) Glomerular Filtration Rate Calc 78 mL/min (>90) BUN/Creatinine Ratio 9.7 (10.0-20.0) Serum Glucose 128 mg/dL (74-106) Calcium Level 9.4 mg/dL (8.7-10.4) Total Bilirubin 0.7 mg/dL (0.2-1.0) Aspartate Amino Transferase (AST) 20 U/L (13-40) Alanine Aminotransferase (ALT) 26 U/L (7-40) Alkaline Phosphatase 73 U/L (46-116) Total Protein 7.1 g/dL (5.7-8.2) Albumin 4.4 g/dL (3.2-4.8) Plasma/Serum Blood Alcohol < 3.0 mg/dL (<10) Lactic Acid Level 1.6 mmol/L (0.4-2.0) Ammonia < 10 umol/L (11-32) Test 07/08/25 13:50 07/08/25 13:17 07/08/25 11:33 Urine Color Light-yellow (Yellow) Urine Clarity Clear (Clear) Urine pH 5.5 (5.0-9.0) Urine Specific [place] 1.022 (1.001-1.035) Urine Protein Negative (Negative) Urine Ketones Negative (Negative) Urine Blood Negative /uL (Negative) Urine Nitrite Negative (Negative) Urine Bilirubin Negative (Negative) Urine Urobilinogen Normal mg/dL (Negative) Urine Leukocyte Esterase Negative /uL (Negative) Urine RBC 2 /hpf (0 - 3) Urine Microscopic WBC 1 /HPF (0-3) Urine Squamous Epithelial Cells None seen /hpf (<5) Urine Bacteria None seen /hpf (None Seen) Urine Mucus Few (None Seen) Urine Glucose Normal mg/dL (Normal) Urine Opiates Screen Neg (NEGATIVE) Urine Fentanyl Screen Neg (NEGATIVE) Urine Barbiturates Screen Neg (NEGATIVE) Urine Phencyclidine Screen Neg (NEGATIVE) Urine Amphetamines Screen Neg (NEGATIVE) Urine Benzodiazepines Screen Neg (NEGATIVE) Urine Cocaine Screen Neg (NEGATIVE) Urine Cannabinoids Screen Neg (NEGATIVE) Prothrombin Time 11.2 sec (9.3-11.8) Prothrombin Time INR 1.06 (0.9-1.15) Activated Partial Thromboplast Time 26.3 SEC (24.5-34.5) Hemoglobin A1c 6.2 % A1C (<5.7) Phosphorus Level 2.9 mg/dL (2.4-5.1) Magnesium Level 1.8 mg/dL (1.6-2.6) Triglycerides Level 174 mg/dL (< 150) Cholesterol Level 191 mg/dL (< 200) LDL Cholesterol 133 mg/dL (< 100) HDL Cholesterol 44 mg/dL (40-59) Vitamin B12 Level 257 pg/mL (211-911) Vitamin D 25-Hydroxy 18.9 ng/mL (30.0-100) Thyroid Stimulating Hormone (TSH) 0.74 uIU/mL (0.55-4.78) POC Glucose 126 mg/dl (70-106) Other Laboratory Tests 07/11/25 05:53 Brief Hx & Hospital Course: Anderson Fisher is a 54-year-old male patient who presents to the ED brought by EMS due to drowsiness, dizziness, and altered level of consciousness after being exposed by fumes at work (he [place] [employer]). Per patient and inmate released a gas, and he felt these symptoms right after that exposure. Denies any other associated symptoms. Past medical history: Morbid obesity, restless leg syndrome, umbilical hernia Surgical history: Appendectomy Family history: Grandmother has lupus Social history: Lives in [place] with (next of kin). Denies current tobacco, alcohol and other drug abuse. Allergies: Denies Home medication: Ropinirole Initial evaluation ruled out cerebrovascular accident. Head CT showed a small area of hypoattenuation in the left globus pallidus, possibly representing an age-indeterminate infarct or prominent perivascular space. MRI was recommended for further evaluation. He was admitted to telemetry for monitoring. EKG reveals sinus bradycardia without ST changes, consistent with baseline per history. Cardiac stress test was completed and returned negative, with no ischemic changes and a normal LV ejection fraction of 53%. Echocardiography revealed borderline LVH, RV borderline enlarged and lifted showed mild enlargement. The patient remained stable from a cardiac standpoint throughout hospitalization. During his stay, his symptoms improved significantly, was afebrile and hemodynamically stable, with no chest pain, shortness of breath, or fever. Neurologic examination was normal with no motor or sensory deficits. Urine drug screen was negative. His restless leg syndrome was managed with ropinirole and pramipexole. He was counseled on healthy lifestyle habits due to morbid obesity. The discharge and treatment plan was discussed with the patient and his spouse. They verbalized understanding and was advised to follow up in [facility] clinic, with PCP and kettle tender within 1-2 weeks. Examination Patient lying in bed, in no acute distress General: Somnolent, afebrile, mucosae are moist, presents generalized twitching Cardiovascular: Normal S1 and S2. No murmurs, gallops or rubs Respiratory: Normal ventilation mechanics. Clear lung sounds on auscultation Abdomen: Soft, nontender, no organomegaly, normal bowel sounds. Presents umbilical hernia, nor erythema or any signs of obstruction. MSK/skin: Mobilizes 4 limbs. Skin is dry and warm Neurological: Oriented in 3 spheres. No motor no sensitive deficits. Pupils are isocoric and reactive Case discussed with Dr. Hernadez Operations or Procedures PATIENT: ANDERSON FISHER ACCT: [id number] UNIT: [id number] : 1970 LOC: OVERFLOW ROOM / BED: [address] [address] AGE / SEX: 54 / M ADM STATUS: ADM IN SERVICE PROCEDURE(s): HWOCT - HEAD WITHOUT CONTRAST REASON: Toxic encephalopathy ORDER NUMBER(s): [id number], ACCESSION NUMBER(s): [id number] CLINICAL HISTORY: Toxic encephalopathy TECHNIQUE: Helical scanning was performed of the head from the skull base to the vertex. Multiplanar reconstructions were performed. This exam was performed according to our departmental dose optimization program. Up-to-date CT equipment and radiation dose reduction techniques are utilized as appropriate. CTDI 53.5 DLP 966 COMPARISON: None FINDINGS: Evaluation is limited due to patient motion. There is no evidence for acute intracranial hemorrhage, mass, mass effect, or extra-axial fluid collection. There is no hydrocephalus or midline shift. There is no effacement of the cerebral sulci and basal subarachnoid cisterns. The ingram-white matter differentiation is well maintained. There is a small area of hypoattenuation at the left globus pallidus. The imaged paranasal sinuses are clear. IMPRESSION: Limited exam with small area of hypoattenuation at the left globus pallidus,which could represent an age indeterminate infarct or prominent perivascular space. MRI can better evaluate. ATED BY: PINA JOHNSON MD DICTATED DATE/TIME: 07/08/251739 SIGNED BY: PINA JOHNSON MD SIGNED DATE/TIME: 07/08/251739 CC: Echocardiography: LV ejection fraction 55%, mild LVH Cardiac stress test: Negative for ischemia, normal EF 53% Condition at Discharge: Stable Final Diagnosis/Problems List Toxic encephalopathy Toxic gas exposure at work Ruled out CVA Transient sinus bradycardia Morbid obesity Discharge Disposition: Home Discharge Instruct/Medications Diet: Cardiac 2g Na,low cholest Activity: No Restrictions, As Tolerated Follow Up/Referral: dc clinic Scheduled Atorvastatin Calcium (Lipitor), 1 TAB PO DAILY Chlorthalidone (Chlorthalidone), 25 MG PO DAILY Ergocalciferol (Vitamin D 28509 Unit), 50,000 UNIT PO Q7D Miscellaneous Medications Ropinirole Hydrochloride (Ropinirole Hcl), 5 MG PO, (Reported) Discharge Statement: "Patient was advised to return to the ER or call 911 if any headaches, dizziness, shortness of breath, chest pain, abdominal pain, bleeding, fevers, or worsening of medical condition. Patient was counseled about treatment plan, medications, possible side effects, patientverbalized understanding. All questions were answered to the best of my ability. This discharge took greater then 30 minutes in planning, reviewing documentation, counseling the patient, and discussing with other team members." ASSESSMENT ASSESSMENT Assessment PATY Cameron RESIDENT Jul 11, 2025 17:36
--- NOTE | 2025-07-11 22:05 | DVHPN2 ---
Progress Note - Dictate Date Seen: Jul 11, 2025 Medical Necessity Reason Pt with a Central, PICC or Fol: No Subjective Patient was seen and evaluated in follow up. Patient has no new complaints at this time. Patient denies any cardiac symptoms. Patient is cardiac stable for discharge. Telemetry reviewed. vital signs Vital Sign Date Time Temp Pulse Resp B/P (MAP) Pulse Ox O2 Delivery O2 Flow Rate FiO2 07/11/25 09:00 97.3 46 16 143/81 (101) 95 97.3 07/11/25 08:00 Room Air* 0 21 Total Intake and Output 07/10/25 07/10/25 07/11/25 14:59 22:59 06:59 Intake Total 500 ml 800 ml Balance 500 ml 800 ml medications Current Medications Medications Dose Ordered Sig/[place] Route Start Time Stop Time Status Last Admin Dose Admin Acetaminophen 325 mg Q4HP PRN PO 07/08/25 16:30 07/09/25 16:51 325 MG Enoxaparin Sodium 40 mg BIDD SC 07/08/25 18:00 07/11/25 05:30 40 MG Sodium Chloride 1,000 ml @ 125 mls/hr Q8H IV 07/08/25 16:45 07/09/25 16:45 125 MLS/HR Ergocalciferol 50,000 unit Q7D PO 07/13/25 10:00 Pramipexole Dihydrochloride 0.125 mg DAILY PO 07/09/25 19:00 07/11/25 09:19 0.125 MG Atorvastatin Calcium 40 mg HS PO 07/09/25 22:00 07/10/25 21:10 40 MG Chlorthalidone 25 mg DAILY@BREAKFAST PO 07/10/25 08:00 07/11/25 09:19 25 MG objective GENERAL: Alert and oriented x 3. No acute distress. Obese. EYES: PERRL, EOMI. Anicteric. HENT: Moist mucous membranes. LUNGS: Clear to auscultation bilaterally. CARDIOVASCULAR: Regular rate and rhythm. ABDOMEN: Soft, non-tender and non-distended. EXTREMITIES: No edema. NEUROLOGIC: No focal neurological deficits. SKIN: Warm, dry. laboratory and microbiology Laboratory Tests 07/11/25 05:53 Test 07/11/25 05:53 Range/Units Serum Glucose 128 H 74-106 mg/dL Problem List Dizziness secondary to unknown inhaled exposure agent. Asymptomatic sinus bradycardia. Hypertensive urgency, resolved. Rule out structural heart disease. Diabetes, newly diagnosed. Dyslipidemia. Morbid obesity. Assessment/Plan Continued all current supportive medical care. DVT prophylactics. Additional plan as per the hospital course Plan discussed with: Patient LEDA MENDEZ MD Jul 11, 2025 11:49
[2025-07-13] MEDS ORDERED: ERGOCALCIFEROL 50,000 UNIT(1.25MG) CAP PO SCH (10:00)
== END 2025-07-11 17:49 | disposition home or self-care (01) | DRG 917 ==
LOC: ER 11:25 → EDUNIT# 11:25 → EDBD 11:25 → OVERFLOW 16:23 → TELE-CENTR 16:26
PROVIDERS: ADMIT Student in an Organized Health Care Education/Training Program; ATTEND Student in an Organized Health Care Education/Training Program
PROC: 4A02XM4 Measurement of Cardiac Total Activity, External Approach (ICD-10-PCS; principal; 2025-07-10)
DX: T59.91XA Toxic effect of unspecified gases, fumes and vapors, accidental (unintentional), initial encounter (principal); G92.8 Other toxic encephalopathy; Z68.41 Body mass index [BMI] 40.0-44.9, adult; E66.01 Morbid (severe) obesity due to excess calories; G47.33 Obstructive sleep apnea (adult) (pediatric); G25.81 Restless legs syndrome; I16.0 Hypertensive urgency; E78.5 Hyperlipidemia, unspecified; E11.9 Type 2 diabetes mellitus without complications; R00.1 Bradycardia, unspecified; I51.9 Heart disease, unspecified; F17.210 Nicotine dependence, cigarettes, uncomplicated; Z82.5 Family history of asthma and other chronic lower respiratory diseases; Y92.89 Other specified places as the place of occurrence of the external cause; Z83.3 Family history of diabetes mellitus; Z57.5 Occupational exposure to toxic agents in other industries; Z90.49 Acquired absence of other specified parts of digestive tract; Z79.899 Other long term (current) drug therapy
CPT/HCPCS: 36415; 70450; 80048; 80053; 80061; 80307; 80320; 81001; 82140; 82306; 82607; 82962; 83036; 83605; 83735; 84100; 84443; 85025; 85610; 85730; 93005; 93017; 93306; 94660; 96361; 96374; 96375; 96376; G0378; J2405